=== PATIENT | female | born 1930 | race Caucasian/White ===

== ENCOUNTER 2018-06-24 17:57 | Inpatient (IN) | payer MEDICARE ==
[~2018-06-24] VITALS: Ht 152.4 cm; Wt 73.3 kg
--- NOTE | ~2018-06-24 | PN ---
PATIENT:CANDELARIA COBB MEDICAL RECORD: [id number] LOCATION:[facility] ADMISSION DATE: 06/24/18 PROGRESS NOTE DATE OF SERVICE: 06/29/2018 SUBJECTIVE: The patient wants to know where she will be going. OBJECTIVE: On exam, the patient is pleasant. Mood is for the most part euthymic. Affect is somewhat shallow. Speech tends to be rather terse. Content of thought is negative for overt psychosis. Sensorium unchanged. ASSESSMENT: No change in diagnosis. PLAN: 1. Continue current medications. 2. Continue supportive therapy. TRANSINT:[id number] Voice Confirmation ID: [id number] DOCUMENT ID: [id number] JAXON ZIEGLER III, MD at 1035 CC: [id number] DICTATION DATE: 06/29/18 1144 REGIONAL OWNER OPERATOR TRUCK DRIVER: 06/29/18 1155 ADM IN [place] [id number] [place] [address]
--- NOTE | ~2018-06-24 | PN ---
PATIENT:CANDELARIA COBB MEDICAL RECORD: [id number] LOCATION:[facility] ADMISSION DATE: 06/24/18 PROGRESS NOTE DATE OF SERVICE: 07/03/2018 SUBJECTIVE: The patient's case was discussed with staff. She has no new complaint. OBJECTIVE: The patient is in good behavioral control with limited insight about her condition. She tolerates her medicines well. ASSESSMENT: No change in diagnoses. PLAN: Brief supportive and educational interventions were made. The patient is not acutely dangerous. I anticipate that she can be transitioned out of the hospital after the weekend if this level of improvement is maintained. TRANSINT:[id number] Voice Confirmation ID: [id number] DOCUMENT ID: [id number] ROSETTA OLMEDO MD at [facility] CC: [id number] DICTATION DATE: 07/03/18 1434 OPENSTACK DEVELOPER: 07/03/18 1447 ADM IN [facility] [address] [place] [address]
--- NOTE | ~2018-06-24 | PN ---
PATIENT:CANDELARIA COBB MEDICAL RECORD: [id number] LOCATION:[facility] ADMISSION DATE: 06/24/18 PROGRESS NOTE DATE OF SERVICE: 07/07/2018 SUBJECTIVE: The patient's case was discussed with staff. She has no new complaint. OBJECTIVE: The patient denies intent to harm herself or others. She generally tolerates her medicines well. Eye contact is fair. Concentration is fair. ASSESSMENT: No change in diagnoses. PLAN: Current medicines have been reviewed and will be maintained. Long-term prognosis is guarded. TRANSINT:[id number] Voice Confirmation ID: [id number] DOCUMENT ID: [id number] ROSETTA OLMEDO MD at 1520 CC: [id number] DICTATION DATE: 07/07/18 1538 AUTOMOTIVE TIRE TESTING SUPERVISOR: 07/07/18 1633 ADM IN [facility] [address] [place] [address]
--- NOTE | ~2018-06-24 | PN ---
PATIENT:CANDELARIA COBB MEDICAL RECORD: [id number] LOCATION:[facility] ADMISSION DATE: 06/24/18 PROGRESS NOTE DATE OF SERVICE: 07/02/2018 SUBJECTIVE: The patient's case was discussed with staff. She has no new complaint. OBJECTIVE: The patient is tolerating her medicines well. She has no thoughts of self-harm. She has limited insight about her condition. ASSESSMENT: No change in diagnoses. PLAN: The patient is not acutely dangerous, but certainly cannot live independently. As already documented there are some issues regarding information that can be obtained since her only son and closest relative is undergoing a liver transplant. She is not able to provide much in the way of useful information about her finances or banking information that would be needed by a fdc to place her. None of this matters today since she is not ready to go or be discharged, but it will come up soon and as part of an ongoing discharge plan that evolves through the course of the hospitalization and pointing out a problem that needs to be solved, which may not be very helpful since I do not know how to solve it and neither does anyone else I have spoken to at this point. The son will be weeks or even months recovering from his liver transplant and even if he is able to give information in the next few days or weeks, it is unreliable and cannot really be checked. TRANSINT:[id number] Voice Confirmation ID: [id number] DOCUMENT ID: [id number] ROSETTA OLMEDO MD at 0754 CC: [id number] DICTATION DATE: 07/02/18 1335 SPANISH TRANSLATOR: 07/02/18 1342 ADM IN [place] [place] [address]
--- NOTE | ~2018-06-24 | PN ---
PATIENT:CANDELARIA COBB MEDICAL RECORD: [id number] LOCATION:[facility] ADMISSION DATE: 06/24/18 PROGRESS NOTE DATE OF SERVICE: 07/06/2018 SUBJECTIVE: The patient's case was discussed with staff. She has no new complaint. OBJECTIVE: The patient is in good behavioral control with limited insight about her condition. She tolerates her medicines well. ASSESSMENT: No change in diagnoses. PLAN: The patient is on the active case load of adult protective services. It is my opinion that she needs 69-qixt-k-day supervision. What is not clear to me is what the least restrictive environment would be. At this point, her son, who has cared for her, recently underwent a liver transplant; and in my opinion, is not able to provide care for her. Once he recovers or if he recovers or depending upon how much he recovers, it may be possible for him to do so in the future; but at this point, it appears the least restrictive environment is the residential. TRANSINT:[id number] Voice Confirmation ID: [id number] DOCUMENT ID: [id number] ROSETTA OLMEDO MD at 1508 CC: [id number] DICTATION DATE: 07/06/18 1456 DOPE DRY HOUSE OPERATOR: 07/06/18 1647 ADM IN [facility] [address] [place] [address]
--- NOTE | ~2018-06-24 | DS ---
PATIENT:CANDELARIA COBB :34 MEDICAL RECORD: [id number] DISCHARGE SUMMARY ADMISSION DATE: 06/24/18 DISCHARGE DATE: 07/08/18 IDENTIFYING DATA: The patient is 87 years old and she was admitted to the hospital on a voluntary basis. The patient is and she was brought to the Emergency Room by her caregiver because the caregiver could not manage her disruptive behaviors. The patient has a longstanding diagnosis of Alzheimer disease and has been treated with Aricept. The patient's son who normally would care for her is in [place] receiving a liver transplant. The patient was very disruptive and quite confused. HOSPITAL COURSE: The patient was admitted to the hospital and fully evaluated from both a medical, psychological, and social standpoint. She was treated with memory enhancing and mood stabilizing medications and showed significant improvement in her behavior. Obviously, there was no significant improvement in her underlying cognitive deficits. Discharge planning was somewhat complicated because of the next of kin, her son, and his serious medical needs. The patient was subsequently placed in a half-way because her son, at least at this time, is not capable of providing the care that she needs. DISCHARGE DIAGNOSES: AXIS I: Senile dementia of the Alzheimer's type with behavioral disturbances. AXIS II: None. AXIS III: Hypertension, hypercholesterolemia, hypothyroidism, urinary tract infection. AXIS IV: Moderate stressors. AXIS V: Global assessment of functioning is 40. PLAN: At the time of discharge, the patient was in good behavioral control and had no active thoughts of harming herself or others. She was tolerating her medicines well. Followup will be with her primary care half-way physician. At least at this time, the half-way is the least restrictive environment, but I am hopeful that her son will make a sufficient recovery, so that they can be reunited. TRANSINT:[id number] Voice Confirmation ID: [id number] DOCUMENT ID: [id number] ROSETTA OLMEDO MD at 0743 CC: [id number] DICTATION DATE: 07/10/18 1332 MORTGAGE LOAN PROCESSOR: 07/10/18 1340 DIS IN 07/08/18 [facility] [address] [place] [address]
--- NOTE | ~2018-06-24 | PN ---
PATIENT:CANDELARIA COBB MEDICAL RECORD: [id number] LOCATION:[facility] ADMISSION DATE: 06/24/18 PROGRESS NOTE DATE OF SERVICE: 07/08/2018 SUBJECTIVE: The patient's case was discussed with staff. She has no new complaint. OBJECTIVE: The patient is in good behavioral control with limited insight about her condition. She tolerates her medicines well. ASSESSMENT: No change in diagnoses. PLAN: The patient is severely impaired cognitively, but has no evidence of direct or acute dangerousness to herself or others. She is in need of 31-xylk-p-day supervision and she will be transitioned out of the hospital and to the custodial today. Follow up will be with her custodial primary care physician. TRANSINT:[id number] Voice Confirmation ID: [id number] DOCUMENT ID: [id number] ROSETTA OLMEDO MD at 0849 CC: [id number] DICTATION DATE: 07/08/18 1611 HR PAYROLL COORDINATOR: 07/08/18 1754 DIS IN 07/08/18 [place] [address] [place] [address]
--- NOTE | ~2018-06-24 | PN ---
PATIENT:CANDELARIA COBB MEDICAL RECORD: [id number] LOCATION:[facility] ADMISSION DATE: 06/24/18 PROGRESS NOTE DATE OF SERVICE: 07/01/2018 SUBJECTIVE: The patient's case was discussed with staff. She has no new complaint. OBJECTIVE: The patient is in good behavioral control with limited insight about her condition. She generally tolerates her medicines well. ASSESSMENT: No change in diagnoses. PLAN: Supportive and educational interventions were made. Long-term prognosis is guarded. I anticipate the patient can be transitioned out of the hospital soon. There are some very significant complicating factors related to the patient leaving the hospital primarily associated with the issue of placement. Her closest living relative, her adult son, is undergoing at this time a liver transplant and is critically ill and even if he survives will be convalescing for some time. She is so impaired she cannot give information about banking or checks or any of that, which would allow us to refer her for placement. I am not sure which direction to go with this, but we will consider asking adult protective services to assist. TRANSINT:[id number] Voice Confirmation ID: [id number] DOCUMENT ID: [id number] ROSETTA OLMEDO MD at 1303 CC: [id number] DICTATION DATE: 07/01/18 1144 OPAL MINER: 07/01/18 1155 ADM IN [facility] [address] [place] [address]
--- NOTE | ~2018-06-24 | PN ---
PATIENT:CANDELARIA COBB MEDICAL RECORD: [id number] LOCATION:[facility] ADMISSION DATE: 06/24/18 PROGRESS NOTE DATE OF SERVICE: 07/05/2018 SUBJECTIVE: The patient's case was discussed with staff. She has no new complaint. OBJECTIVE: The patient is in good behavioral control, but severely impaired cognitively. She has not been agitated. ASSESSMENT: No change in diagnoses. PLAN: Brief supportive and educational interventions were made. Long-term prognosis is guarded. TRANSINT:[id number] Voice Confirmation ID: [id number] DOCUMENT ID: [id number] ROSETTA OLMEDO MD at 1320 CC: [id number] DICTATION DATE: 07/05/18 1108 SPRING INTERNSHIP: 07/05/18 1150 ADM IN [place] [address] [place] [address]
--- NOTE | ~2018-06-24 | PN ---
PATIENT:CANDELARIA COBB MEDICAL RECORD: [id number] LOCATION:[facility] ADMISSION DATE: 06/24/18 PROGRESS NOTE DATE OF SERVICE: 06/26/2018 SUBJECTIVE: No new complaint. OBJECTIVE: The patient has signed herself in voluntarily. Staff has been able to maintain contact with her son. The patient has not shown aggressiveness or hostility, but has very poor short-term memory. On exam, mood is euthymic. Affect is pleasant. Speech is tangential and repetitive. Content of thought is negative for overt psychosis. The patient is oriented clearly only to person with global memory impairment. ASSESSMENT: No change in diagnosis. PLAN: 1. Continue current medication regimen. 2. Continue supportive therapy. TRANSINT:[id number] Voice Confirmation ID: [id number] DOCUMENT ID: [id number] JAXON ZIEGLER III, MD at 0711 CC: [id number] DICTATION DATE: 06/26/18 1112 LAPPING MACHINE TENDER: 06/26/18 1134 ADM IN [facility] [address] [place] [address]
--- NOTE | ~2018-06-24 | PN ---
PATIENT:CANDELARIA COBB MEDICAL RECORD: [id number] LOCATION:[facility]illa ADMISSION DATE: 06/24/18 PROGRESS NOTE DATE OF SERVICE: 07/04/2018 SUBJECTIVE: The patient's case was discussed with staff. She has no new complaint. OBJECTIVE: The patient is sleeping and eating reasonably well. She is severely impaired cognitively, but has not been actively aggressive. ASSESSMENT: No change in diagnoses. PLAN: Current medicines have been reviewed and will be maintained. Supportive and educational interventions were made. TRANSINT:[id number] Voice Confirmation ID: [id number] DOCUMENT ID: [id number] ROSETTA OLMEDO MD at 1039 CC: [id number] DICTATION DATE: 07/04/18 1157 HARDBOARD PRESS OPERATOR: 07/04/18 1214 ADM IN [place] [address] [place] [address]
--- NOTE | ~2018-06-24 | PSY ---
PATIENT NAME:CANDELARIA COBB MEDICAL RECORD: [id number] : 34 LOCATION:[facility] Reyes ADMISSION DATE: 06/24/18 ACCOUNT: [id number] PSYCHIATRIC EVALUATION DATE OF EVALUATION: 06/25/18 IDENTIFYING DATA: This is the first [facility] admission for this 87-year-old white female. HISTORY OF PRESENT ILLNESS: This patient was brought to the Emergency Department with the history that her caregiver could not manage her behavior. The patient has a previous history of Alzheimer's dementia and has been treated with Aricept on a routine basis. The patient's son, who would normally be able to provide care, is currently in the hospital in [place] receiving a liver transplant. Another napping machine operator had been hired, but this individual evidently left rather abruptly. A substitute napping machine operator evidently stated that they were unable to manage the patient because of agitation, irritability, and combativeness. When seen in the Emergency Department, the emergency physician determined based on his observation that the patient needs to be held on a 72-hour hold, citing the fact that she did suffer from dementia and had been agitated and uncooperative. For this reason, the patient was admitted to the [facility]. PAST MEDICAL HISTORY: The patient does have a past history of hypertension, hypothyroidism, and hypercholesterolemia. MEDICATION: At the time of admission included Aricept 10 mg h.s., Zocor 40 mg daily, lisinopril 10 mg daily, Celexa 20 mg daily, Tenormin 50 mg daily, aspirin 81 mg daily, levothyroxine 100 mcg daily. Macrobid 100 mg every 12 hours was started at the time of admission due to evidence of a urinary tract infection. FAMILY HISTORY: Noncontributory. SOCIAL HISTORY: The patient is a . She does not have a substance abuse history. As mentioned, she has a son who is currently hospitalized in [place]. ALLERGIES: None listed. MENTAL STATUS: On interview, the patient is initially somewhat suspicious, but quickly becomes more cooperative. Mood is pleasant. Affect is somewhat constricted. Speech tends to be rather terse. Content of thought is negative for overt psychosis. On sensorium testing, the patient has severe deficits. She is oriented only to person. She believes that she is living in [place] with her . She believes that her son is in perfect health. She states that the only reason that she can think of that she is in a hospital in [place] is that she came down here to see a football game. The patient obviously shows deficits in remote, intermediate and short-term recall. Concentration is likewise quite poor. Insight and judgment are very poor. DIAGNOSTIC IMPRESSION: AXIS I: Alzheimer dementia with behavioral disturbance. AXIS II: No diagnosis. AXIS III: Hypertension, hypercholesterolemia, hypothyroidism, urinary tract infection. AXIS IV: Severe. AXIS V: 32. PLAN: 1. The patient is admitted for further medical and psychiatric workup. 2. Diet and activities as tolerated. 3. We will stay in contact with the son regarding management and possible placement. TRANSINT:[id number] Voice Confirmation ID: [id number] DOCUMENT ID: [id number] JAXON ZIEGLER III, MD at 1012 CC: [id number] DICTATION DATE: 06/25/18 1055 FILM OR VIDEOTAPE EDITOR: 06/25/18 1107 ADM IN [place] [id number] [place] [address]
[2018-06-24] MEDS ORDERED: CELEXA20 MG PO (18:13)
[2018-06-24] MEDS ORDERED: LEVOXYL100 MCG PO (18:13)
[2018-06-24] MEDS ORDERED: TENORMIN50 MG PO (18:13)
[2018-06-24] MEDS ORDERED: ARICEPT10 MG PO (18:13)
[2018-06-24] MEDS ORDERED: BAYER CHEWABLE81 MG PO (18:13)
[2018-06-24] MEDS ORDERED: ZOCOR40 MG PO (18:14)
[2018-06-24] MEDS ORDERED: PRINIVIL10 MG PO (18:14)
[2018-06-24 18:41] LABS: APPEARANCE CLEAR (CLEAR); BILIRUBIN NEGATIVE (NEGATIVE); COLOR YELLOW (YELLOW); GLUCOSE NEGATIVE (NEGATIVE); KETONE NEGATIVE (NEGATIVE); NITRITE NEGATIVE (NEGATIVE); PROTEIN TRACE mg/dL (NEGATIVE); SPECIFIC GRAVITY 1.015 (1.005-1.020); UROBILINOGEN NORMAL (NORMAL)
[2018-06-24 18:42] LABS: EPITHELIAL CELLS 0-5 /hpf (0-5)
[2018-06-24 18:43] LABS: BACTERIA MANY /hpf (NONE SEEN)
[2018-06-24 18:44] LABS: BASOPHILS 0.5 % (0-2); EOSINOPHILS 3.8 % (0-7); HEMATOCRIT 36.6 % (36.0-48.0); HEMOGLOBIN 12.4 g/dL (12-16); IMMATURE GRANULOCYTES 0.4 % (0-5); LYMPHOCYTES 32.9 % (15-50); MCHC 33.9 g/dL (31.0-37.0); MCV 88.4 fL (80.0-100.0); MONOCYTES 13.8 % (2-11); NEUTROPHILS 48.6 % (40-80); PLATELET COUNT 180 10x3/uL (130-400); RBC 4.14 10x6/uL (4.00-5.40); RDW 13.5 % (11.5-14.5); WBC 7.7 10x3/uL (4.8-10.8)
[2018-06-24 18:52] LABS: UDS - AMPHET NEGATIVE QUAL (NEGATIVE); UDS - BARB NEGATIVE QUAL (NEGATIVE); UDS - BENZO NEGATIVE QUAL (NEGATIVE); UDS - COCAINE NEGATIVE QUAL (NEGATIVE); UDS - OPIATE NEGATIVE QUAL (NEGATIVE); UDS - PCP NEGATIVE QUAL (NEGATIVE); UDS - THC NEGATIVE QUAL (NEGATIVE)
[2018-06-24 18:53] LABS: ALBUMIN 3.9 g/dL (3.4-5.0); ANION GAP 13.7 mmol/L (8-16); BILIRUBIN - TOTAL 1.01 mg/dL (0.2-1.3); CALCIUM 9.1 mg/dL (8.5-10.1); CARBON DIOXIDE 29.9 mmol/L (21.0-32.0); CREATININE - SERUM 0.8 mg/dL (0.6-1.3); POTASSIUM - SERUM 3.6 mmol/L (3.5-5.1); PROTEIN - SERUM 6.9 g/dL (6.4-8.2)
[2018-06-24 19:02] LABS: THYROID STIMULATING HORMONE 3.16 uIU/mL (0.36-3.74)
[2018-06-24 19:54] VITALS: BP 136/84
[2018-06-24 23:52] VITALS: BP 200/80; BMI 18.5
[2018-06-25 06:56] LABS: CHOL - HDL RATIO 2.7 ratio (2.3-4.1); LDL-HDL RATIO 1.4 ratio (1.5-3.5)
[2018-06-25 09:06] VITALS: BP 166/79
[2018-06-25 19:27] VITALS: BP 128/65
[2018-06-26 07:29] LABS: RAPID PLASMA REAGIN Non Reactive (Non Reactive)
[2018-06-26 07:35] VITALS: BP 160/73; BP 172/70
[2018-06-26 08:18] LABS: FOLATE (FOLIC ACID) - SERUM 15.6 ng/mL (>3.0)
[2018-06-26 12:19] LABS: VITAMIN D 25 HYDROXY 15.2 ng/mL (30.0-100.0)
[2018-06-26 14:06] VITALS: Ht 152.4 cm; Wt 73.3 kg
[2018-06-26 19:53] VITALS: BP 168/83
[2018-06-27 09:08] VITALS: BP 121/72; BP 122/72
[2018-06-27 20:31] VITALS: BP 120/60
[2018-06-28 07:00] VITALS: BP 148/66
[2018-06-28 20:00] VITALS: BP 142/74
[2018-06-29 19:56] VITALS: BP 135/67
[2018-06-30 08:00] VITALS: BP 143/70
[2018-06-30 20:06] VITALS: BP 148/73
[2018-07-01 08:09] VITALS: BP 105/63
[2018-07-01 19:26] VITALS: BP 132/61
[2018-07-02 07:36] VITALS: BP 122/76
[2018-07-02 19:45] VITALS: BP 157/66
[2018-07-03 08:05] VITALS: BP 122/62
[2018-07-03 19:31] VITALS: BP 125/50
[2018-07-04 09:35] VITALS: BP 123/74
[2018-07-04 22:32] VITALS: BP 127/64
[2018-07-05 08:18] VITALS: BP 124/64
[2018-07-05 19:57] VITALS: BP 148/75
[2018-07-06 07:48] VITALS: BP 123/94
[2018-07-06 20:23] VITALS: BP 135/55
[2018-07-07 08:55] VITALS: BP 122/69
[2018-07-07] MEDS ORDERED: ARICEPT10 MG PO (15:36)
[2018-07-07] MEDS ORDERED: VITAMIN D5000 UNIT PO (15:37)
[2018-07-07 21:12] VITALS: BP 132/60
[2018-07-08 08:15] VITALS: BP 123/73
== END 2018-07-08 15:35 | DRG 57 ==
LOC: D.ER 17:57 → D.PSYCH 20:35 → D.ER 20:45 → D.PSYCH 07-08 15:35
PROVIDERS: Family Medicine; Psychiatry & Neurology Psychiatry
DX: G30.9 Alzheimer's disease, unspecified (principal); F02.81 Dementia in other diseases classified elsewhere, unspecified severity, with behavioral disturbance; N39.0 Urinary tract infection, site not specified; Z68.1 Body mass index [BMI] 19.9 or less, adult; I10 Essential (primary) hypertension; E78.00 Pure hypercholesterolemia, unspecified; E78.5 Hyperlipidemia, unspecified; E55.9 Vitamin D deficiency, unspecified; E03.9 Hypothyroidism, unspecified; R63.6 Underweight; Z91.81 History of falling